=== PATIENT | female | born 2000 | race Caucasian/White ===

== ENCOUNTER 2020-12-01 18:32 | Emergency (ER) | payer OTHER ==
[~2020-12-01] VITALS: Ht 162.6 cm; Wt 59.1 kg
[2020-12-01 19:14] LABS: BASOPHILS % (AUTO) 0.3 % (0.0-2.0); EOSINOPHILS % (AUTO) 0.2 % (1.0-6.0); HEMOGLOBIN 14.3 g/dL (12.0-16.0); LYMPHOCYTES # (AUTO) 2.2 K/uL (1.0-4.8); LYMPHOCYTES % (AUTO) 19.7 % (22.0-44.0); MEAN CORPUSCULAR HEMOGLOBIN 30.7 pg (26.0-34.0); MEAN CORPUSCULAR VOLUME 90 fL (80-100); NEUTROPHILS # (AUTO) 7.9 K/uL (1.8-7.7); NEUTROPHILS % (AUTO) 70.8 % (40.0-70.0); PLATELET COUNT (AUTO) 274 K/uL (150-450); RED BLOOD CELL COUNT(AUTO) 4.66 MIL/uL (4.00-5.20); RED CELL DISTRIBUTION WIDTH 13.2 % (11.5-14.5)
[2020-12-01 19:32] LABS: AMPHET/METH SCREEN,URINE NEGATIVE (NEGATIVE); BARBITURATE SCREEN, URINE NEGATIVE (NEGATIVE); BENZODIAZEPINES SCREEN,URINE NEGATIVE (NEGATIVE); CANNABINOID SCREEN,URINE POSITIVE (NEGATIVE); COCAINE SCREEN,URINE NEGATIVE (NEGATIVE); METHADONE SCREEN, URINE NEGATIVE (NEGATIVE); OPIATE SCREEN,URINE NEGATIVE (NEGATIVE)
[2020-12-01 19:33] LABS: PHENCYCLIDINE SCREEN,URINE NEGATIVE (NEGATIVE)
[2020-12-01 19:50] LABS: ANION GAP 16 mmol/L (8-16); CALCIUM, TOTAL 9.8 mg/dL (8.8-10.5); CARBON DIOXIDE 23 mmol/L (22-29); CHLORIDE 97 mmol/L (98-107); CREATININE 0.79 mg/dL (0.60-1.30); GLOMERULAR FILTR. RATE CALC > 60 mL/min (>60); GLUCOSE,RANDOM 79 mg/dL (70-110); POTASSIUM 3.7 mmol/L (3.5-5.1); SODIUM SERUM 136 mmol/L (136-145); UREA NITROGEN, BLOOD 11 mg/dL (7-18)
[2020-12-01 19:55] LABS: ALANINE AMINOTRANSFERASE 19 U/L (12-78); ALBUMIN 4.9 g/dL (3.4-5.0); ALKALINE PHOSPHATASE 54 U/L (46-116); ASPARTATE AMINOTRANSFERASE 13 U/L (15-37); BILIRUBIN,TOTAL 0.6 mg/dL (0.1-1.0); TOTAL PROTEIN, SERUM 8.2 g/dL (6.4-8.2)
[2020-12-01 19:56] LABS: COVID AG,FIA SOURCE NASOPHARYNGEAL
[2020-12-01 20:52] VITALS: BP 129/79
== END 2020-12-01 20:52 | disposition home or self-care (01) ==
LOC: EMS 18:33
DX: F41.9 Anxiety disorder, unspecified (principal); Z20.822 Contact with and (suspected) exposure to COVID-19
CPT/HCPCS: 36415; 80053; 80307; 85025; 87426; 99283; C9803; G0480

== ENCOUNTER 2020-12-02 11:11 | Inpatient (IN) | payer MEDICAID ==
[~2020-12-02] VITALS: Ht 162.6 cm; Wt 59.4 kg
[2020-12-02 16:30] VITALS: BP 126/72
[2020-12-02] MEDS ORDERED: INFLUENZA VIRUS VACCINE QVS 2020-21 (6MO+)/PF 60 MCG/0.5 ML SYRINGE IM ONE (16:45)
[2020-12-02] MEDS: LORazepam 2 MG TABLET PO PRN (18:40)
[2020-12-03 02:26] VITALS: BP 110/73
[2020-12-03] MEDS ORDERED: MAGNESIUM HYDROXIDE SUSPENSION 30 ML UDCUP PO PRN (07:00)
[2020-12-03] MEDS ORDERED: DOCUSATE SODIUM 100 MG CAPSULE PO PRN (07:00)
[2020-12-03] MEDS ORDERED: CloNIDine HCL 0.1 MG TABLET PO PRN (07:00)
[2020-12-03] MEDS ORDERED: LOPERAMIDE HCL 2 MG CAPSULE PO PRN (07:00)
[2020-12-03] MEDS ORDERED: ACETAMINOPHEN 325 MG TABLET PO PRN (07:00)
[2020-12-03] MEDS ORDERED: GuaiFENesin/D-METHORPHAN [SUGAR-FREE] 200-20MG/10 ML SYRUP UDCUP PO PRN (07:00)
[2020-12-03] MEDS ORDERED: PETROLATUM,WHITE 28 GM JELLY TP PRN (07:00)
[2020-12-03] MEDS ORDERED: NICOTINE 14 MG/24 HOUR PATCH TD PRN (07:00)
[2020-12-03] MEDS ORDERED: ALBUTEROL SULFATE HFA 90 MCG/PUFF 8 GM INHALER IH PRN (07:00)
[2020-12-03] MEDS: LORazepam 2 MG TABLET PO PRN ×2 (07:47→13:10)
[2020-12-03] MEDS: ONDANSETRON HCL 4 MG TABLET PO PRN ×2 (07:47→19:02)
[2020-12-03 08:17] VITALS: BP 124/71
[2020-12-03] MEDS: HALOPERIDOL 5 MG TABLET PO PRN (13:10)
[2020-12-03] MEDS: MAG HYDROX/AL HYDROX/SIMETH ES 30 ML SUSPENSION UDCUP PO PRN (15:45)
[2020-12-03 16:28] VITALS: BP 117/62
[2020-12-03] MEDS: ZOLPIDEM TARTRATE 10 MG TABLET PO PRN (21:13)
[2020-12-04 00:42] VITALS: BP 128/66
[2020-12-04] MEDS: HALOPERIDOL 5 MG TABLET PO PRN ×2 (03:28→16:55)
[2020-12-04] MEDS: LORazepam 2 MG TABLET PO PRN ×3 (03:28→16:55)
[2020-12-04] MEDS: ONDANSETRON HCL 4 MG TABLET PO PRN (06:46)
[2020-12-04] MEDS: RisperiDONE 1 MG TABLET PO SCH (08:05)
[2020-12-04] MEDS: PARoxetine HCL 10 MG TABLET PO SCH (08:06)
[2020-12-04 08:14] VITALS: BP 114/71
[2020-12-04 08:28] LABS: BASOPHILS % (AUTO) 0.9 % (0.0-2.0); EOSINOPHILS % (AUTO) 0.7 % (1.0-6.0); HEMATOCRIT 38.1 % (36-46); HEMOGLOBIN 12.9 g/dL (12.0-16.0); LYMPHOCYTES % (AUTO) 30.7 % (22.0-44.0); MEAN CORPUSCULAR HEMOGLOBIN 30.6 pg (26.0-34.0); MEAN CORPUSCULAR HGB CONC 33.8 G/dL (31.0-37.0); MEAN CORPUSCULAR VOLUME 90 fL (80-100); MONOCYTES # (AUTO) 0.5 K/uL (0.1-1.0); MONOCYTES % (AUTO) 7.3 % (2.0-9.0); NEUTROPHILS % (AUTO) 60.4 % (40.0-70.0); PLATELET COUNT (AUTO) 233 K/uL (150-450); RED BLOOD CELL COUNT(AUTO) 4.22 MIL/uL (4.00-5.20); RED CELL DISTRIBUTION WIDTH 13.3 % (11.5-14.5)
[2020-12-04 08:56] LABS: HEMOGLOBIN A1C 4.9 % (3.8-5.6)
[2020-12-04 08:58] LABS: ALANINE AMINOTRANSFERASE 18 U/L (12-78); ALBUMIN 4.1 g/dL (3.4-5.0); ALKALINE PHOSPHATASE 39 U/L (46-116); ANION GAP 12 mmol/L (8-16); ASPARTATE AMINOTRANSFERASE 10 U/L (15-37); BILIRUBIN,TOTAL 0.5 mg/dL (0.1-1.0); CALCIUM, TOTAL 9.3 mg/dL (8.8-10.5); CARBON DIOXIDE 25 mmol/L (22-29); CHLORIDE 101 mmol/L (98-107); CHOL/HDL RATIO 2.3 (3.9-5.7); CHOLESTEROL 112 mg/dL (131-200); CREATININE 0.69 mg/dL (0.60-1.30); FREE T4 (FREE THYROXINE) 1.65 ng/dL (0.76-1.46); GLOMERULAR FILTR. RATE CALC > 60 mL/min (>60); GLUCOSE,RANDOM 87 mg/dL (70-110); HCG,QUANTITATIVE < 1 mIU/mL (0-6); HDL CHOLESTEROL 49 mg/dL (40-60); LDL CHOL (CALC.) 52 mg/dL (0-130); POTASSIUM 3.4 mmol/L (3.5-5.1); SODIUM SERUM 138 mmol/L (136-145); THYROID STIMULATING HORMONE 0.45 uIU/mL (0.36-3.74); TOTAL PROTEIN, SERUM 7.2 g/dL (6.4-8.2); TRIGLYCERIDES 53 mg/dL (15-150); UREA NITROGEN, BLOOD 7 mg/dL (7-18)
[2020-12-04 16:09] VITALS: BP 110/68
[2020-12-04] MEDS: MAG HYDROX/AL HYDROX/SIMETH ES 30 ML SUSPENSION UDCUP PO PRN (18:07)
[2020-12-05 00:11] VITALS: BP 116/66
[2020-12-05] MEDS: ONDANSETRON HCL 4 MG TABLET PO PRN (03:43)
[2020-12-05] MEDS: RisperiDONE 1 MG TABLET PO SCH ×2 (08:03→16:40)
[2020-12-05] MEDS: LORazepam 2 MG TABLET PO PRN ×2 (08:03→12:43)
[2020-12-05] MEDS: PARoxetine HCL 10 MG TABLET PO SCH (08:03)
[2020-12-05 08:17] VITALS: BP 134/81
[2020-12-05 09:24] LABS: AMYLASE 53 U/L (25-115); LIPASE 102 U/L (73-393)
[2020-12-05] MEDS: HALOPERIDOL 5 MG TABLET PO PRN (09:34)
[2020-12-05 16:11] VITALS: BP 125/89
[2020-12-06] MEDS: IBUPROFEN 400 MG TABLET PO PRN (05:18)
[2020-12-06] MEDS: ONDANSETRON HCL 4 MG TABLET PO PRN (06:04)
[2020-12-06] MEDS: RisperiDONE 1 MG TABLET PO SCH ×2 (08:01→16:48)
[2020-12-06] MEDS: PARoxetine HCL 20 MG TABLET PO SCH (08:01)
[2020-12-06 08:17] VITALS: BP 121/81
[2020-12-06] MEDS: LORazepam 2 MG TABLET PO PRN (14:51)
[2020-12-06 16:21] VITALS: BP 134/72
[2020-12-06] MEDS: HALOPERIDOL 5 MG TABLET PO PRN (17:21)
[2020-12-06] MEDS: ZOLPIDEM TARTRATE 10 MG TABLET PO PRN (20:50)
[2020-12-07 00:43] VITALS: BP 122/74
[2020-12-07] MEDS: RisperiDONE 1 MG TABLET PO SCH ×2 (08:07→16:02)
[2020-12-07] MEDS: LORazepam 2 MG TABLET PO PRN ×2 (08:17→17:19)
[2020-12-07] MEDS: PARoxetine HCL 20 MG TABLET PO SCH (08:17)
[2020-12-07 08:21] VITALS: BP 118/76
[2020-12-07 16:54] VITALS: BP 121/79
[2020-12-08 02:14] VITALS: BP 105/81
[2020-12-08] MEDS: IBUPROFEN 400 MG TABLET PO PRN (06:41)
[2020-12-08] MEDS: RisperiDONE 1 MG TABLET PO SCH ×2 (08:03→16:25)
[2020-12-08] MEDS: LORazepam 2 MG TABLET PO PRN ×2 (08:03→12:46)
[2020-12-08] MEDS: PARoxetine HCL 20 MG TABLET PO SCH (08:03)
[2020-12-08 08:37] VITALS: BP 118/79
[2020-12-08 16:12] VITALS: BP 137/76
[2020-12-09] MEDS: ZOLPIDEM TARTRATE 10 MG TABLET PO PRN (00:28)
[2020-12-09 02:05] VITALS: BP 122/74
[2020-12-09] MEDS: IBUPROFEN 400 MG TABLET PO PRN (04:50)
[2020-12-09] MEDS: RisperiDONE 1 MG TABLET PO SCH ×2 (08:08→15:59)
[2020-12-09] MEDS: PARoxetine HCL 20 MG TABLET PO SCH (08:08)
[2020-12-09 08:21] VITALS: BP 116/68
[2020-12-09] MEDS: LORazepam 2 MG TABLET PO PRN ×2 (10:44→15:59)
[2020-12-09 16:26] VITALS: BP 129/79
[2020-12-10 00:25] VITALS: BP 123/74
[2020-12-10] MEDS: ZOLPIDEM TARTRATE 10 MG TABLET PO PRN ×2 (00:36→21:38)
[2020-12-10 08:05] VITALS: BP 125/71
[2020-12-10] MEDS: PARoxetine HCL 20 MG TABLET PO SCH (08:58)
[2020-12-10] MEDS: RisperiDONE 1 MG TABLET PO SCH ×2 (08:58→16:42)
[2020-12-10] MEDS: LORazepam 2 MG TABLET PO PRN ×2 (09:04→13:07)
[2020-12-10] MEDS: IBUPROFEN 400 MG TABLET PO PRN (15:52)
[2020-12-10 16:30] VITALS: BP 139/78
[2020-12-11 00:11] VITALS: BP 126/73
[2020-12-11] MEDS: MAG HYDROX/AL HYDROX/SIMETH ES 30 ML SUSPENSION UDCUP PO PRN (00:45)
[2020-12-11 08:13] VITALS: BP 130/72
[2020-12-11] MEDS: LORazepam 2 MG TABLET PO PRN ×2 (08:26→23:05)
[2020-12-11] MEDS: RisperiDONE 1 MG TABLET PO SCH ×2 (08:26→16:49)
[2020-12-11] MEDS: PARoxetine HCL 20 MG TABLET PO SCH (08:26)
[2020-12-11 08:31] LABS: COVID AG,FIA SOURCE NASOPHARYNGEAL
[2020-12-11 09:18] LABS: APPEARANCE,URINE CLEAR (CLEAR); BILIRUBIN,URINE NEGATIVE (NEGATIVE); GLUCOSE, URINE (UA) NEGATIVE (NEGATIVE); KETONES,URINE NEGATIVE (NEGATIVE); LEUKOCYTE ESTERASE ,URINE NEGATIVE (NEGATIVE); NITRATE,URINE NEGATIVE (NEGATIVE); OCCULT BLOOD,URINE NEGATIVE (NEGATIVE); PROTEIN,URINE NEGATIVE (NEGATIVE); UROBILINOGEN,URINE 0.2 mg/dL (<=1.0)
[2020-12-11 09:22] LABS: AMPHET/METH SCREEN,URINE NEGATIVE (NEGATIVE); BARBITURATE SCREEN, URINE NEGATIVE (NEGATIVE); BENZODIAZEPINES SCREEN,URINE NEGATIVE (NEGATIVE); CANNABINOID SCREEN,URINE POSITIVE (NEGATIVE); COCAINE SCREEN,URINE NEGATIVE (NEGATIVE); METHADONE SCREEN, URINE NEGATIVE (NEGATIVE); OPIATE SCREEN,URINE NEGATIVE (NEGATIVE)
[2020-12-11 09:31] LABS: PHENCYCLIDINE SCREEN,URINE NEGATIVE (NEGATIVE)
[2020-12-11 16:05] VITALS: BP 124/76
[2020-12-11] MEDS: HALOPERIDOL 5 MG TABLET PO PRN (23:05)
[2020-12-12 01:18] VITALS: BP 102/69
[2020-12-12] MEDS: ZOLPIDEM TARTRATE 10 MG TABLET PO PRN (01:22)
[2020-12-12 08:07] VITALS: BP 118/76
[2020-12-12] MEDS: PARoxetine HCL 20 MG TABLET PO SCH (08:25)
[2020-12-12] MEDS: RisperiDONE 1 MG TABLET PO SCH (08:25)
[2020-12-12] MEDS ORDERED: RISP1TAB89 PO (09:54)
[2020-12-12] MEDS ORDERED: PARO-38 PO (09:54)
== END 2020-12-12 10:34 | disposition home or self-care (01) | DRG 750 ==
LOC: B3A 16:24
PROVIDERS: ADMIT Psychiatry & Neurology Child & Adolescent Psychiatry; ATTEND Psychiatry & Neurology Child & Adolescent Psychiatry
DX: F20.0 Paranoid schizophrenia (principal); Z59.0 Homelessness; F12.90 Cannabis use, unspecified, uncomplicated; F41.9 Anxiety disorder, unspecified; F10.10 Alcohol abuse, uncomplicated; Y90.9 Presence of alcohol in blood, level not specified; F19.10 Other psychoactive substance abuse, uncomplicated; F15.10 Other stimulant abuse, uncomplicated; E87.6 Hypokalemia; E05.90 Thyrotoxicosis, unspecified without thyrotoxic crisis or storm; N39.0 Urinary tract infection, site not specified; R73.9 Hyperglycemia, unspecified; Z91.19 Patient's noncompliance with other medical treatment and regimen; Z20.822 Contact with and (suspected) exposure to COVID-19; Z28.21 Immunization not carried out because of patient refusal
CPT/HCPCS: 80307; 83036; 84436; 84439; 84443; 87081; 87426; 90686; Q0162

== ENCOUNTER 2020-12-19 19:41 | Inpatient (IN) | payer MEDICAID, OTHER ==
[~2020-12-19] VITALS: Ht 170.2 cm; Wt 59.9 kg
[~2020-12-19 19:41] MED LIST: PARO-38 PO; RISP1TAB89 PO
[2020-12-19] MEDS ORDERED: METH-372 PO (20:09)
[2020-12-19] MEDS ORDERED: LORazepam 2 MG TABLET PO ONE (21:15)
[2020-12-19 21:16] LABS: HEMATOCRIT 36.4 % (36-46); HEMOGLOBIN 12.8 g/dL (12.0-16.0); MEAN CORPUSCULAR HEMOGLOBIN 31.1 pg (26.0-34.0); MEAN CORPUSCULAR HGB CONC 35.1 G/dL (31.0-37.0); MEAN CORPUSCULAR VOLUME 88 fL (80-100); PLATELET COUNT (AUTO) 281 K/uL (150-450); RED BLOOD CELL COUNT(AUTO) 4.12 MIL/uL (4.00-5.20); RED CELL DISTRIBUTION WIDTH 13.3 % (11.5-14.5)
[2020-12-19 21:35] LABS: ANION GAP 11 mmol/L (8-16); CALCIUM, TOTAL 9.7 mg/dL (8.8-10.5); CARBON DIOXIDE 26 mmol/L (22-29); CHLORIDE 103 mmol/L (98-107); GLOMERULAR FILTR. RATE CALC > 60 mL/min (>60); GLUCOSE,RANDOM 113 mg/dL (70-110); POTASSIUM 3.6 mmol/L (3.5-5.1); SODIUM SERUM 140 mmol/L (136-145); UREA NITROGEN, BLOOD 6 mg/dL (7-18)
[2020-12-19 21:42] LABS: ALANINE AMINOTRANSFERASE 13 U/L (12-78); ALBUMIN 4.7 g/dL (3.4-5.0); ALKALINE PHOSPHATASE 47 U/L (46-116); ASPARTATE AMINOTRANSFERASE 13 U/L (15-37); BILIRUBIN,TOTAL 0.5 mg/dL (0.1-1.0); TOTAL PROTEIN, SERUM 7.9 g/dL (6.4-8.2)
[2020-12-19 21:51] LABS: BAND NEUTROPHILS % (MANUAL) 11 % (0-5); LYMPHOCYTES % (MANUAL) 14 % (22-44); MONOCYTES % (MANUAL) 6 % (2-9); SEGMENTED NEUTROPHILS % 69 % (40-70)
[2020-12-19 21:52] LABS: ACETAMINOPHEN < 2 mcg/mL (10-30)
[2020-12-19 21:53] LABS: SALICYLATE 1.6 mg/dL (2.8-20.0)
[2020-12-19 22:30] LABS: COVID AG,FIA SOURCE NASOPHARYNGEAL
[2020-12-19 22:34] LABS: APPEARANCE,URINE CLOUDY (CLEAR); BILIRUBIN,URINE NEGATIVE (NEGATIVE); GLUCOSE, URINE (UA) NEGATIVE (NEGATIVE); KETONES,URINE TRACE mg/dL (NEGATIVE); LEUKOCYTE ESTERASE ,URINE NEGATIVE (NEGATIVE); NITRATE,URINE NEGATIVE (NEGATIVE); OCCULT BLOOD,URINE NEGATIVE (NEGATIVE); PROTEIN,URINE NEGATIVE (NEGATIVE); UROBILINOGEN,URINE 0.2 mg/dL (<=1.0)
[2020-12-19 23:04] LABS: AMPHET/METH SCREEN,URINE NEGATIVE (NEGATIVE); BARBITURATE SCREEN, URINE NEGATIVE (NEGATIVE); BENZODIAZEPINES SCREEN,URINE NEGATIVE (NEGATIVE); CANNABINOID SCREEN,URINE POSITIVE (NEGATIVE); COCAINE SCREEN,URINE NEGATIVE (NEGATIVE); METHADONE SCREEN, URINE NEGATIVE (NEGATIVE); OPIATE SCREEN,URINE NEGATIVE (NEGATIVE)
[2020-12-19 23:15] LABS: PHENCYCLIDINE SCREEN,URINE NEGATIVE (NEGATIVE)
[2020-12-20 03:13] VITALS: BP 138/81
[2020-12-20] MEDS ORDERED: MAG HYDROX/AL HYDROX/SIMETH ES 30 ML SUSPENSION UDCUP PO PRN (07:45)
[2020-12-20] MEDS ORDERED: ONDANSETRON HCL 4 MG TABLET PO PRN (07:45)
[2020-12-20] MEDS ORDERED: PETROLATUM,WHITE 28 GM JELLY TP PRN (07:45)
[2020-12-20] MEDS ORDERED: MAGNESIUM HYDROXIDE SUSPENSION 30 ML UDCUP PO PRN (07:45)
[2020-12-20] MEDS ORDERED: CloNIDine HCL 0.1 MG TABLET PO PRN (07:45)
[2020-12-20] MEDS ORDERED: DOCUSATE SODIUM 100 MG CAPSULE PO PRN (07:45)
[2020-12-20] MEDS ORDERED: LOPERAMIDE HCL 2 MG CAPSULE PO PRN (07:45)
[2020-12-20] MEDS ORDERED: ACETAMINOPHEN 325 MG TABLET PO PRN (07:45)
[2020-12-20] MEDS ORDERED: GuaiFENesin/D-METHORPHAN [SUGAR-FREE] 200-20MG/10 ML SYRUP UDCUP PO PRN (07:45)
[2020-12-20] MEDS ORDERED: NICOTINE 14 MG/24 HOUR PATCH TD PRN (07:45)
[2020-12-20] MEDS ORDERED: ALBUTEROL SULFATE HFA 90 MCG/PUFF 8 GM INHALER IH PRN (07:45)
[2020-12-20] MEDS: LORazepam 2 MG TABLET PO PRN (08:08)
[2020-12-20 08:14] VITALS: BP 112/69
[2020-12-20] MEDS: HALOPERIDOL 5 MG TABLET PO PRN (09:06)
[2020-12-20 09:26] LABS: FREE T4 (FREE THYROXINE) 1.26 ng/dL (0.76-1.46); THYROID STIMULATING HORMONE 0.45 uIU/mL (0.36-3.74)
[2020-12-20] MEDS: IBUPROFEN 400 MG TABLET PO PRN (10:22)
[2020-12-20 11:22] VITALS: BP 116/78
[2020-12-20 16:15] VITALS: BP 135/60
[2020-12-21 00:30] VITALS: BP 121/62
[2020-12-21] MEDS: LORazepam 2 MG TABLET PO PRN ×3 (03:23→18:25)
[2020-12-21 08:33] VITALS: BP 134/87
[2020-12-21] MEDS: RisperiDONE 2 MG TABLET PO SCH (16:02)
[2020-12-21 16:26] VITALS: BP 128/80
[2020-12-21] MEDS: IBUPROFEN 400 MG TABLET PO PRN (17:33)
[2020-12-21] MEDS: ZOLPIDEM TARTRATE 10 MG TABLET PO PRN (20:47)
[2020-12-22] MEDS: LORazepam 2 MG TABLET PO PRN ×3 (00:09→08:33)
[2020-12-22] MEDS: HALOPERIDOL 5 MG TABLET PO PRN (00:10)
[2020-12-22] MEDS: IBUPROFEN 400 MG TABLET PO PRN (00:11)
[2020-12-22 00:23] VITALS: BP 120/78
[2020-12-22] MEDS: RisperiDONE 2 MG TABLET PO SCH ×2 (08:33→16:41)
[2020-12-22] MEDS: PARoxetine HCL 20 MG TABLET PO SCH (08:33)
[2020-12-22 08:42] VITALS: BP 162/96
[2020-12-22 12:00] VITALS: BP 145/79
[2020-12-22 14:28] VITALS: BP 129/69
[2020-12-22 17:59] VITALS: BP 117/64
[2020-12-23 01:19] VITALS: BP 110/67
[2020-12-23] MEDS: IBUPROFEN 400 MG TABLET PO PRN ×2 (05:22→20:35)
[2020-12-23] MEDS: RisperiDONE 2 MG TABLET PO SCH ×2 (08:00→17:47)
[2020-12-23] MEDS: PARoxetine HCL 20 MG TABLET PO SCH (08:00)
[2020-12-23 08:30] VITALS: BP 135/87
[2020-12-23] MEDS: LORazepam 2 MG TABLET PO PRN ×2 (09:15→13:27)
[2020-12-23 09:48] LABS: BASOPHILS % (AUTO) 1.2 % (0.0-2.0); EOSINOPHILS % (AUTO) 1.1 % (1.0-6.0); HEMATOCRIT 38.9 % (36-46); HEMOGLOBIN 12.8 g/dL (12.0-16.0); LYMPHOCYTES # (AUTO) 1.5 K/uL (1.0-4.8); LYMPHOCYTES % (AUTO) 24.9 % (22.0-44.0); MEAN CORPUSCULAR HEMOGLOBIN 30.8 pg (26.0-34.0); MEAN CORPUSCULAR HGB CONC 32.8 G/dL (31.0-37.0); MEAN CORPUSCULAR VOLUME 94 fL (80-100); MONOCYTES # (AUTO) 0.3 K/uL (0.1-1.0); MONOCYTES % (AUTO) 5.9 % (2.0-9.0); NEUTROPHILS # (AUTO) 3.9 K/uL (1.8-7.7); NEUTROPHILS % (AUTO) 66.9 % (40.0-70.0); PLATELET COUNT (AUTO) 271 K/uL (150-450); RED BLOOD CELL COUNT(AUTO) 4.16 MIL/uL (4.00-5.20); RED CELL DISTRIBUTION WIDTH 13.8 % (11.5-14.5)
[2020-12-23] MEDS: HALOPERIDOL 5 MG TABLET PO PRN (13:27)
[2020-12-23 16:29] VITALS: BP 131/75
[2020-12-24] MEDS: ZOLPIDEM TARTRATE 10 MG TABLET PO PRN ×2 (02:20→22:49)
[2020-12-24 02:42] VITALS: BP 122/87
[2020-12-24] MEDS: PARoxetine HCL 20 MG TABLET PO SCH (08:11)
[2020-12-24] MEDS: RisperiDONE 2 MG TABLET PO SCH ×2 (08:11→16:42)
[2020-12-24] MEDS: IBUPROFEN 400 MG TABLET PO PRN ×2 (08:12→22:50)
[2020-12-24 08:27] VITALS: BP 136/84
[2020-12-24] MEDS: LORazepam 2 MG TABLET PO PRN ×2 (10:47→23:45)
[2020-12-24 16:20] VITALS: BP 136/76
[2020-12-24 20:22] VITALS: BP 136/76
[2020-12-25 02:33] VITALS: BP 126/82
[2020-12-25] MEDS: LORazepam 2 MG TABLET PO PRN ×2 (03:59→08:21)
[2020-12-25] MEDS: PARoxetine HCL 20 MG TABLET PO SCH (08:21)
[2020-12-25] MEDS: RisperiDONE 2 MG TABLET PO SCH ×2 (08:21→17:01)
[2020-12-25 08:24] VITALS: BP 111/58
[2020-12-25] MEDS: HALOPERIDOL 5 MG TABLET PO PRN (10:24)
[2020-12-25 16:10] VITALS: BP 133/80
[2020-12-26 01:35] VITALS: BP 112/74
[2020-12-26 02:43] VITALS: BP 152/98
[2020-12-26] MEDS: LORazepam 2 MG TABLET PO PRN ×2 (02:43→20:34)
[2020-12-26] MEDS: ZOLPIDEM TARTRATE 10 MG TABLET PO PRN (02:43)
[2020-12-26 08:15] VITALS: BP 122/60
[2020-12-26] MEDS: MULTIVITAMINS WITH MINERALS, THERAPEUTIC TABLET PO SCH (08:38)
[2020-12-26] MEDS: RisperiDONE 2 MG TABLET PO SCH ×2 (08:38→16:35)
[2020-12-26] MEDS: PARoxetine HCL 20 MG TABLET PO SCH (08:38)
[2020-12-26 16:36] VITALS: BP 128/78
[2020-12-26] MEDS: HALOPERIDOL 5 MG TABLET PO PRN (17:24)
[2020-12-26] MEDS: IBUPROFEN 400 MG TABLET PO PRN (20:34)
[2020-12-26] MEDS: OLANZapine 10 MG RAPDIS TABLET PO SCH (20:34)
[2020-12-27 03:51] VITALS: BP 122/74
[2020-12-27] MEDS: IBUPROFEN 400 MG TABLET PO PRN (05:15)
[2020-12-27] MEDS: PARoxetine HCL 20 MG TABLET PO SCH (08:18)
[2020-12-27] MEDS: MULTIVITAMINS WITH MINERALS, THERAPEUTIC TABLET PO SCH (08:18)
[2020-12-27 08:26] VITALS: BP 128/70
[2020-12-27] MEDS: LORazepam 2 MG TABLET PO PRN ×2 (09:09→14:40)
[2020-12-27 16:15] VITALS: BP 118/82
[2020-12-27] MEDS: OLANZapine 10 MG RAPDIS TABLET PO SCH (20:40)
[2020-12-27] MEDS: ZOLPIDEM TARTRATE 10 MG TABLET PO PRN (21:16)
[2020-12-28 01:11] VITALS: BP 102/71
[2020-12-28] MEDS: LORazepam 2 MG TABLET PO PRN ×3 (06:17→15:35)
[2020-12-28] MEDS: MULTIVITAMINS WITH MINERALS, THERAPEUTIC TABLET PO SCH (08:32)
[2020-12-28] MEDS: PARoxetine HCL 20 MG TABLET PO SCH (08:33)
[2020-12-28 10:23] VITALS: BP 131/67
[2020-12-28 16:27] VITALS: BP 132/86
[2020-12-28] MEDS: IBUPROFEN 400 MG TABLET PO PRN (17:07)
[2020-12-28] MEDS: OLANZapine 10 MG RAPDIS TABLET PO SCH (20:16)
[2020-12-28] MEDS: ZOLPIDEM TARTRATE 10 MG TABLET PO PRN (20:17)
[2020-12-29 00:57] VITALS: BP 102/76
[2020-12-29] MEDS: IBUPROFEN 400 MG TABLET PO PRN (02:38)
[2020-12-29] MEDS: LORazepam 2 MG TABLET PO PRN ×3 (02:38→14:39)
[2020-12-29 08:14] VITALS: BP 136/92
[2020-12-29] MEDS: PARoxetine HCL 20 MG TABLET PO SCH (08:51)
[2020-12-29] MEDS: MULTIVITAMINS WITH MINERALS, THERAPEUTIC TABLET PO SCH (08:51)
[2020-12-29] MEDS: HALOPERIDOL 5 MG TABLET PO PRN (12:03)
[2020-12-29 16:11] VITALS: BP 122/68
[2020-12-29] MEDS: OLANZapine 10 MG RAPDIS TABLET PO SCH (20:03)
[2020-12-29] MEDS: ZOLPIDEM TARTRATE 10 MG TABLET PO PRN (20:28)
[2020-12-30] MEDS: HALOPERIDOL 5 MG TABLET PO PRN (01:36)
[2020-12-30 04:31] VITALS: BP 127/76
[2020-12-30 08:18] VITALS: BP 147/77
[2020-12-30] MEDS: MULTIVITAMINS WITH MINERALS, THERAPEUTIC TABLET PO SCH (08:22)
[2020-12-30] MEDS: PARoxetine HCL 20 MG TABLET PO SCH (08:22)
[2020-12-30] MEDS ORDERED: OLAN10TA3 PO (10:32)
== END 2020-12-30 12:25 | disposition home or self-care (01) | DRG 750 ==
LOC: EMS 19:41 → B3A 21:41
PROVIDERS: ADMIT Psychiatry & Neurology Child & Adolescent Psychiatry; ATTEND Psychiatry & Neurology Child & Adolescent Psychiatry
DX: F20.9 Schizophrenia, unspecified (principal); F41.9 Anxiety disorder, unspecified; M17.0 Bilateral primary osteoarthritis of knee; R45.851 Suicidal ideations; D72.829 Elevated white blood cell count, unspecified; F12.90 Cannabis use, unspecified, uncomplicated; Z20.822 Contact with and (suspected) exposure to COVID-19; Z91.14 Patient's other noncompliance with medication regimen
CPT/HCPCS: 84439; 84443; 87081; 87426; 99285; G0480; G0481; Q0162

== ENCOUNTER 2021-01-05 18:29 | Inpatient (IN) | payer MEDICAID, OTHER ==
[~2021-01-05] VITALS: Ht 162.6 cm; Wt 60.4 kg
[~2021-01-05 18:29] MED LIST changes: +OLAN10TA3 PO; -RISP1TAB89 PO
[2021-01-05] MEDS ORDERED: HALOPERIDOL LACTATE 5 MG/ML VIAL IM ONE (19:30)
[2021-01-05] MEDS ORDERED: LORazepam 2 MG/ML VIAL IM ONE (19:30)
[2021-01-05 20:32] LABS: BASOPHILS % (AUTO) 0.8 % (0.0-2.0); EOSINOPHILS % (AUTO) 1.7 % (1.0-6.0); HEMATOCRIT 38.5 % (36-46); HEMOGLOBIN 12.8 g/dL (12.0-16.0); LYMPHOCYTES # (AUTO) 2.5 K/uL (1.0-4.8); LYMPHOCYTES % (AUTO) 28.3 % (22.0-44.0); MEAN CORPUSCULAR HEMOGLOBIN 30.1 pg (26.0-34.0); MEAN CORPUSCULAR HGB CONC 33.3 G/dL (31.0-37.0); MEAN CORPUSCULAR VOLUME 90 fL (80-100); MONOCYTES # (AUTO) 0.7 K/uL (0.1-1.0); MONOCYTES % (AUTO) 8.2 % (2.0-9.0); NEUTROPHILS # (AUTO) 5.4 K/uL (1.8-7.7); PLATELET COUNT (AUTO) 304 K/uL (150-450); RED BLOOD CELL COUNT(AUTO) 4.26 MIL/uL (4.00-5.20); RED CELL DISTRIBUTION WIDTH 13.7 % (11.5-14.5)
[2021-01-05 20:46] LABS: ANION GAP 13 mmol/L (8-16); CALCIUM, TOTAL 8.5 mg/dL (8.8-10.5); CARBON DIOXIDE 24 mmol/L (22-29); CHLORIDE 103 mmol/L (98-107); CREATININE 0.78 mg/dL (0.60-1.30); GLOMERULAR FILTR. RATE CALC > 60 mL/min (>60); GLUCOSE,RANDOM 130 mg/dL (70-110); POTASSIUM 3.2 mmol/L (3.5-5.1); SODIUM SERUM 140 mmol/L (136-145); UREA NITROGEN, BLOOD 4 mg/dL (7-18)
[2021-01-05 20:58] LABS: ALANINE AMINOTRANSFERASE 18 U/L (12-78); ALBUMIN 3.8 g/dL (3.4-5.0); ALKALINE PHOSPHATASE 48 U/L (46-116); ASPARTATE AMINOTRANSFERASE 14 U/L (15-37); BILIRUBIN,TOTAL 0.2 mg/dL (0.1-1.0); TOTAL PROTEIN, SERUM 6.9 g/dL (6.4-8.2)
[2021-01-05] MEDS ORDERED: LORazepam 2 MG TABLET PO PRN (22:45)
[2021-01-05] MEDS ORDERED: POTASSIUM CHLORIDE 20 MEQ ER TABLET PO ONE (22:45)
[2021-01-06 01:00] VITALS: BP 140/80
[2021-01-06] MEDS ORDERED: INFLUENZA VIRUS VACCINE QVS 2020-21 (6MO+)/PF 60 MCG/0.5 ML SYRINGE IM ONE (01:00)
[2021-01-06] MEDS ORDERED: DOCUSATE SODIUM 100 MG CAPSULE PO PRN (08:00)
[2021-01-06] MEDS ORDERED: MAG HYDROX/AL HYDROX/SIMETH ES 30 ML SUSPENSION UDCUP PO PRN (08:00)
[2021-01-06] MEDS ORDERED: ACETAMINOPHEN 325 MG TABLET PO PRN (08:00)
[2021-01-06] MEDS ORDERED: ONDANSETRON HCL 4 MG TABLET PO PRN (08:00)
[2021-01-06] MEDS ORDERED: LOPERAMIDE HCL 2 MG CAPSULE PO PRN (08:00)
[2021-01-06] MEDS ORDERED: ALBUTEROL SULFATE HFA 90 MCG/PUFF 8 GM INHALER IH PRN (08:00)
[2021-01-06] MEDS ORDERED: CloNIDine HCL 0.1 MG TABLET PO PRN (08:00)
[2021-01-06] MEDS ORDERED: GuaiFENesin/D-METHORPHAN [SUGAR-FREE] 200-20MG/10 ML SYRUP UDCUP PO PRN (08:00)
[2021-01-06] MEDS ORDERED: MAGNESIUM HYDROXIDE SUSPENSION 30 ML UDCUP PO PRN (08:00)
[2021-01-06] MEDS ORDERED: POTASSIUM CHLORIDE 20 MEQ ER TABLET PO ONE (08:00)
[2021-01-06] MEDS ORDERED: NICOTINE 14 MG/24 HOUR PATCH TD PRN (08:00)
[2021-01-06] MEDS ORDERED: PETROLATUM,WHITE 28 GM JELLY TP PRN (08:00)
[2021-01-06 08:32] LABS: COVID AG,FIA SOURCE NASOPHARYNGEAL
[2021-01-06 09:58] VITALS: BP 129/80
[2021-01-06] MEDS: HydrOXYzine PAMOATE 50 MG CAPSULE PO PRN (10:32)
[2021-01-06 12:34] LABS: HCG,QUANTITATIVE < 1 mIU/mL (0-6)
[2021-01-06] MEDS ORDERED: PARoxetine HCL 10 MG TABLET PO SCH (13:15)
[2021-01-06] MEDS: HALOPERIDOL 5 MG TABLET PO PRN (13:55)
[2021-01-06 16:15] VITALS: BP 132/74
[2021-01-06] MEDS: ZOLPIDEM TARTRATE 10 MG TABLET PO PRN (20:35)
[2021-01-06] MEDS: OLANZapine 10 MG TABLET PO SCH (20:35)
[2021-01-07 01:41] VITALS: BP 119/72
[2021-01-07] MEDS: HALOPERIDOL 5 MG TABLET PO PRN ×3 (03:15→15:59)
[2021-01-07] MEDS: HydrOXYzine PAMOATE 50 MG CAPSULE PO PRN ×3 (03:16→17:07)
[2021-01-07 08:18] VITALS: BP 145/71
[2021-01-07 08:22] LABS: CHOL/HDL RATIO 2.2 (3.9-5.7); CHOLESTEROL 108 mg/dL (131-200); HCG,QUANTITATIVE < 1 mIU/mL (0-6); HDL CHOLESTEROL 49 mg/dL (40-60); LDL CHOL (CALC.) 48 mg/dL (0-130); TRIGLYCERIDES 56 mg/dL (15-150)
[2021-01-07] MEDS: PARoxetine HCL 20 MG TABLET PO SCH (09:02)
[2021-01-07] MEDS: IBUPROFEN 400 MG TABLET PO PRN (13:40)
[2021-01-07 16:12] VITALS: BP 142/89
[2021-01-07] MEDS ORDERED: LORazepam 2 MG/ML VIAL IM ONE (19:30)
[2021-01-07] MEDS ORDERED: HALOPERIDOL LACTATE 5 MG/ML VIAL IM ONE (19:30)
[2021-01-07] MEDS ORDERED: DiphenhydrAMINE HCL 50 MG/ML VIAL IM ONE (19:30)
[2021-01-07] MEDS: OLANZapine 10 MG TABLET PO SCH (19:59)
[2021-01-08 01:25] VITALS: BP 132/84
[2021-01-08 08:15] VITALS: BP 126/82
[2021-01-08] MEDS: PARoxetine HCL 20 MG TABLET PO SCH (08:15)
[2021-01-08] MEDS: HydrOXYzine PAMOATE 50 MG CAPSULE PO PRN (08:15)
[2021-01-08] MEDS: HALOPERIDOL 5 MG TABLET PO PRN ×2 (08:15→16:13)
[2021-01-08 16:22] VITALS: BP 141/94
[2021-01-08] MEDS: OLANZapine 10 MG TABLET PO SCH (20:33)
[2021-01-09 00:40] VITALS: BP 130/78
[2021-01-09] MEDS: IBUPROFEN 400 MG TABLET PO PRN (01:04)
[2021-01-09] MEDS: ZOLPIDEM TARTRATE 10 MG TABLET PO PRN (01:04)
[2021-01-09] MEDS: HALOPERIDOL 5 MG TABLET PO PRN ×2 (08:02→16:35)
[2021-01-09] MEDS: PARoxetine HCL 20 MG TABLET PO SCH (08:02)
[2021-01-09 08:10] VITALS: BP 147/84
[2021-01-09] MEDS ORDERED: ARIPiprazole 10 MG TABLET PO ONE (12:30)
[2021-01-09 16:03] VITALS: BP 140/80
[2021-01-09] MEDS ORDERED: DiphenhydrAMINE HCL 50 MG/ML VIAL ONE (19:29)
[2021-01-09] MEDS ORDERED: DiphenhydrAMINE HCL 50 MG/ML VIAL IM ONE (19:30)
[2021-01-09] MEDS: OLANZapine 10 MG TABLET PO SCH (20:14)
[2021-01-10 00:12] VITALS: BP 134/78
[2021-01-10] MEDS: PARoxetine HCL 20 MG TABLET PO SCH (08:07)
[2021-01-10 08:17] VITALS: BP 130/67
[2021-01-10] MEDS ORDERED: ARIPiprazole LAUROXIL,SUBMICR. ER SUSPENSION 675 MG/2.4 ML SYRINGE IM ONE (09:00)
[2021-01-10] MEDS ORDERED: ARIPiprazole LAUROXIL ER SUSPENSION 882 MG/3.2 ML SYRINGE IM ONE (09:00)
[2021-01-10 16:17] VITALS: BP 122/69
[2021-01-10] MEDS: OLANZapine 10 MG TABLET PO SCH (20:14)
[2021-01-11 01:43] VITALS: BP 114/76
[2021-01-11] MEDS: THIAMINE 100 MG TABLET PO SCH (08:01)
[2021-01-11] MEDS: FOLIC ACID 1 MG TABLET PO SCH (08:01)
[2021-01-11] MEDS: PARoxetine HCL 20 MG TABLET PO SCH (08:01)
[2021-01-11 08:06] VITALS: BP 116/73
[2021-01-11 16:03] VITALS: BP 136/75
[2021-01-11] MEDS: OLANZapine 10 MG TABLET PO SCH (19:58)
[2021-01-12 04:55] VITALS: BP 122/74
[2021-01-12 08:04] VITALS: BP 156/97
[2021-01-12] MEDS: FOLIC ACID 1 MG TABLET PO SCH (08:28)
[2021-01-12] MEDS: THIAMINE 100 MG TABLET PO SCH (08:29)
[2021-01-12] MEDS: PARoxetine HCL 20 MG TABLET PO SCH (08:29)
[2021-01-12 16:22] VITALS: BP 122/77
[2021-01-12] MEDS: OLANZapine 10 MG TABLET PO SCH (20:50)
[2021-01-12] MEDS: ZOLPIDEM TARTRATE 10 MG TABLET PO PRN (21:25)
[2021-01-12] MEDS: HydrOXYzine PAMOATE 50 MG CAPSULE PO PRN (21:25)
[2021-01-13 00:03] VITALS: BP 134/90
[2021-01-13] MEDS: HydrOXYzine PAMOATE 50 MG CAPSULE PO PRN ×3 (03:48→18:34)
[2021-01-13] MEDS: PARoxetine HCL 20 MG TABLET PO SCH (07:58)
[2021-01-13] MEDS: FOLIC ACID 1 MG TABLET PO SCH (07:58)
[2021-01-13] MEDS: THIAMINE 100 MG TABLET PO SCH (08:00)
[2021-01-13 08:03] VITALS: BP 128/81
[2021-01-13 16:05] VITALS: BP 140/81
[2021-01-13] MEDS: OLANZapine 10 MG TABLET PO SCH (20:17)
[2021-01-14] MEDS: ZOLPIDEM TARTRATE 10 MG TABLET PO PRN ×2 (02:06→20:39)
[2021-01-14] MEDS: HydrOXYzine PAMOATE 50 MG CAPSULE PO PRN ×3 (02:06→14:47)
[2021-01-14 06:41] VITALS: BP 122/74
[2021-01-14] MEDS: FOLIC ACID 1 MG TABLET PO SCH (08:09)
[2021-01-14] MEDS: PARoxetine HCL 20 MG TABLET PO SCH (08:09)
[2021-01-14] MEDS: THIAMINE 100 MG TABLET PO SCH (08:09)
[2021-01-14 08:16] VITALS: BP 145/79
[2021-01-14 16:23] VITALS: BP 150/72
[2021-01-14 17:05] VITALS: BP 133/72
[2021-01-14] MEDS: IBUPROFEN 400 MG TABLET PO PRN (17:58)
[2021-01-14] MEDS: OLANZapine 10 MG TABLET PO SCH (20:39)
[2021-01-15 01:30] VITALS: BP 126/88
[2021-01-15] MEDS: HydrOXYzine PAMOATE 50 MG CAPSULE PO PRN ×3 (01:35→15:32)
[2021-01-15] MEDS: THIAMINE 100 MG TABLET PO SCH (08:03)
[2021-01-15] MEDS: PARoxetine HCL 20 MG TABLET PO SCH (08:03)
[2021-01-15] MEDS: FOLIC ACID 1 MG TABLET PO SCH (08:03)
[2021-01-15 08:09] VITALS: BP 146/81
[2021-01-15] MEDS: IBUPROFEN 400 MG TABLET PO PRN ×2 (10:22→19:04)
[2021-01-15 16:07] VITALS: BP 134/85
[2021-01-15] MEDS: OLANZapine 10 MG TABLET PO SCH (21:03)
[2021-01-15] MEDS: ZOLPIDEM TARTRATE 10 MG TABLET PO PRN (21:03)
[2021-01-16 00:12] VITALS: BP 126/80
[2021-01-16] MEDS: HydrOXYzine PAMOATE 50 MG CAPSULE PO PRN ×2 (06:05→14:00)
[2021-01-16] MEDS: PARoxetine HCL 20 MG TABLET PO SCH (08:00)
[2021-01-16] MEDS: FOLIC ACID 1 MG TABLET PO SCH (08:00)
[2021-01-16] MEDS: THIAMINE 100 MG TABLET PO SCH (08:00)
[2021-01-16 08:08] VITALS: BP 127/91
[2021-01-16 16:25] VITALS: BP 112/62
[2021-01-16] MEDS: OLANZapine 10 MG TABLET PO SCH (20:05)
[2021-01-16 20:21] VITALS: BP 112/62
[2021-01-16] MEDS: IBUPROFEN 400 MG TABLET PO PRN (20:27)
[2021-01-16] MEDS: ZOLPIDEM TARTRATE 10 MG TABLET PO PRN (21:48)
[2021-01-17 02:01] VITALS: BP 102/69
[2021-01-17 08:17] VITALS: BP 156/78
[2021-01-17] MEDS: PARoxetine HCL 20 MG TABLET PO SCH (08:23)
[2021-01-17] MEDS: FOLIC ACID 1 MG TABLET PO SCH (08:23)
[2021-01-17] MEDS: THIAMINE 100 MG TABLET PO SCH (08:23)
[2021-01-17] MEDS: HydrOXYzine PAMOATE 50 MG CAPSULE PO PRN ×2 (13:04→19:41)
[2021-01-17 16:16] VITALS: BP 129/74
[2021-01-17] MEDS: OLANZapine 10 MG TABLET PO SCH (20:18)
[2021-01-17 21:16] VITALS: BP 130/76
[2021-01-17] MEDS: IBUPROFEN 400 MG TABLET PO PRN (21:16)
[2021-01-17] MEDS: ZOLPIDEM TARTRATE 10 MG TABLET PO PRN (21:37)
[2021-01-18 00:18] VITALS: BP 122/78
[2021-01-18] MEDS: HydrOXYzine PAMOATE 50 MG CAPSULE PO PRN ×3 (05:57→19:57)
[2021-01-18] MEDS: PARoxetine HCL 20 MG TABLET PO SCH (07:57)
[2021-01-18] MEDS: THIAMINE 100 MG TABLET PO SCH (07:57)
[2021-01-18] MEDS: FOLIC ACID 1 MG TABLET PO SCH (07:57)
[2021-01-18 08:12] VITALS: BP 141/83
[2021-01-18 16:07] VITALS: BP 130/73
[2021-01-18] MEDS: ZOLPIDEM TARTRATE 10 MG TABLET PO PRN (21:40)
[2021-01-18] MEDS: OLANZapine 10 MG TABLET PO SCH (21:40)
[2021-01-19 01:01] VITALS: BP 126/76
[2021-01-19] MEDS: FOLIC ACID 1 MG TABLET PO SCH (08:06)
[2021-01-19] MEDS: HydrOXYzine PAMOATE 50 MG CAPSULE PO PRN ×2 (08:06→14:29)
[2021-01-19] MEDS: PARoxetine HCL 20 MG TABLET PO SCH (08:06)
[2021-01-19] MEDS: THIAMINE 100 MG TABLET PO SCH (08:06)
[2021-01-19 08:18] VITALS: BP 118/74
[2021-01-19 16:16] VITALS: BP 125/77
[2021-01-19] MEDS: OLANZapine 10 MG TABLET PO SCH (20:21)
[2021-01-19] MEDS: ZOLPIDEM TARTRATE 10 MG TABLET PO PRN (21:45)
[2021-01-20 00:06] VITALS: BP 120/76
[2021-01-20 06:19] VITALS: BP 122/73
[2021-01-20] MEDS: HydrOXYzine PAMOATE 50 MG CAPSULE PO PRN ×2 (06:19→13:07)
[2021-01-20] MEDS: THIAMINE 100 MG TABLET PO SCH (08:05)
[2021-01-20] MEDS: FOLIC ACID 1 MG TABLET PO SCH (08:05)
[2021-01-20] MEDS: PARoxetine HCL 20 MG TABLET PO SCH (08:05)
[2021-01-20 08:21] VITALS: BP 133/76
[2021-01-20] MEDS: IBUPROFEN 400 MG TABLET PO PRN (10:37)
[2021-01-20 17:33] VITALS: BP 117/76
[2021-01-20] MEDS: OLANZapine 10 MG TABLET PO SCH (21:42)
[2021-01-20] MEDS: ZOLPIDEM TARTRATE 10 MG TABLET PO PRN (21:42)
[2021-01-21 00:51] VITALS: BP 114/79
[2021-01-21 08:20] VITALS: BP 114/79
[2021-01-21] MEDS: FOLIC ACID 1 MG TABLET PO SCH (08:31)
[2021-01-21] MEDS: THIAMINE 100 MG TABLET PO SCH (08:31)
[2021-01-21] MEDS: PARoxetine HCL 20 MG TABLET PO SCH (08:31)
[2021-01-21] MEDS: HydrOXYzine PAMOATE 50 MG CAPSULE PO PRN ×2 (12:25→18:31)
[2021-01-21 16:32] VITALS: BP 131/80
[2021-01-21] MEDS: HALOPERIDOL 5 MG TABLET PO PRN (20:25)
[2021-01-21] MEDS: OLANZapine 10 MG TABLET PO SCH (20:25)
[2021-01-21] MEDS: ZOLPIDEM TARTRATE 10 MG TABLET PO PRN (21:10)
[2021-01-22 01:03] VITALS: BP 124/83
[2021-01-22] MEDS: FOLIC ACID 1 MG TABLET PO SCH (08:03)
[2021-01-22] MEDS: THIAMINE 100 MG TABLET PO SCH (08:03)
[2021-01-22] MEDS: PARoxetine HCL 20 MG TABLET PO SCH (08:03)
[2021-01-22 08:13] VITALS: BP 120/63
[2021-01-22] MEDS: HydrOXYzine PAMOATE 50 MG CAPSULE PO PRN (08:17)
[2021-01-22] MEDS ORDERED: OLAN10TA3 PO (09:58)
[2021-01-22] MEDS ORDERED: OLANZapine 10 MG TABLET PO SCH (21:00)
== END 2021-01-22 11:57 | disposition home or self-care (01) | DRG 750 ==
LOC: EMS 18:32 → B3A 22:44
PROVIDERS: ADMIT Psychiatry & Neurology Psychiatry; ATTEND Psychiatry & Neurology Child & Adolescent Psychiatry
DX: F20.0 Paranoid schizophrenia (principal); E87.6 Hypokalemia; Z20.822 Contact with and (suspected) exposure to COVID-19; F41.9 Anxiety disorder, unspecified; R73.9 Hyperglycemia, unspecified; F12.90 Cannabis use, unspecified, uncomplicated; F32.9 Major depressive disorder, single episode, unspecified; F10.10 Alcohol abuse, uncomplicated; Y90.9 Presence of alcohol in blood, level not specified; F19.10 Other psychoactive substance abuse, uncomplicated
CPT/HCPCS: 83036; 84132; 87081; 87426; 99285; A9575; G0480; J1200; J1630; J2060

== ENCOUNTER 2021-02-18 08:30 | Emergency (ER) | payer MEDICAID, OTHER ==
[~2021-02-18] VITALS: Ht 167.6 cm; Wt 68.2 kg
[2021-02-18] MEDS ORDERED: ARIP2TAB27 PO (09:04)
[2021-02-18] MEDS ORDERED: LORazepam 1 MG TABLET PO ONE (10:45)
[2021-02-18 11:12] VITALS: BP 123/71
== END 2021-02-18 11:36 | disposition home or self-care (01) ==
LOC: EMS 08:34
DX: F41.9 Anxiety disorder, unspecified (principal); F25.9 Schizoaffective disorder, unspecified; F32.9 Major depressive disorder, single episode, unspecified; F12.90 Cannabis use, unspecified, uncomplicated; Z79.899 Other long term (current) drug therapy
CPT/HCPCS: 99283

== ENCOUNTER 2023-07-21 22:15 | Inpatient (IN) | payer MEDICARE, MEDICAID ==
[~2023-07-21] VITALS: Ht 162.6 cm; Wt 57.3 kg
[~2023-07-21 22:15] MED LIST changes: +ARIP2TAB27 PO; -OLAN10TA3 PO; -PARO-38 PO
[2023-07-21 23:01] LABS: GLUCOMETER DEV NAME(LOC) POC.BV; POC SARS-COV2 AG, FIA NEGATIVE (NEGATIVE)
[2023-07-21 23:30] VITALS: BP 138/89; PULSE 96; RESP 18; TEMP 97.7; O2SAT 99
[2023-07-22] MEDS: QUEtiapine FUMARATE 100 MG TABLET PO PRN ×2 (00:08→13:29)
[2023-07-22] MEDS: LORazepam 2 MG TABLET PO PRN ×2 (00:08→13:43)
[2023-07-22] MEDS: ZOLPIDEM TARTRATE 10 MG TABLET PO PRN (01:28)
[2023-07-22] MEDS ORDERED: INFLUENZA VIRUS VACCINE QVS 2023-24 (6MO+)/PF 60 MCG/0.5 ML SYRINGE IM. ONE (05:30)
[2023-07-22 08:18] LABS: BASOPHILS % (AUTO) 0.8 % (0.0-2.0); EOSINOPHILS % (AUTO) 2.6 % (1.0-6.0); HEMATOCRIT 39.7 % (36-46); HEMOGLOBIN 13.3 g/dL (12.0-16.0); LYMPHOCYTES # (AUTO) 2.8 K/uL (1.0-4.8); LYMPHOCYTES % (AUTO) 35.3 % (22.0-44.0); MEAN CORPUSCULAR HEMOGLOBIN 31.3 pg (26.0-34.0); MEAN CORPUSCULAR HGB CONC 33.6 G/dL (31.0-37.0); MEAN CORPUSCULAR VOLUME 93 fL (80-100); MONOCYTES # (AUTO) 0.7 K/uL (0.1-1.0); MONOCYTES % (AUTO) 8.4 % (2.0-9.0); NEUTROPHILS # (AUTO) 4.3 K/uL (1.8-7.7); NEUTROPHILS % (AUTO) 52.9 % (40.0-70.0); PLATELET COUNT (AUTO) 315 K/uL (150-450); RED BLOOD CELL COUNT(AUTO) 4.26 MIL/uL (4.00-5.20); RED CELL DISTRIBUTION WIDTH 13.7 % (11.5-14.5)
[2023-07-22 08:32] LABS: HEMOGLOBIN A1C 4.9 % (3.8-5.6)
[2023-07-22 08:35] LABS: ALANINE AMINOTRANSFERASE 18 U/L (12-78); ALBUMIN 3.5 g/dL (3.4-5.0); ALKALINE PHOSPHATASE 60 U/L (46-116); ANION GAP 7 mmol/L (8-16); ASPARTATE AMINOTRANSFERASE 12 U/L (15-37); BILIRUBIN,TOTAL 0.3 mg/dL (0.1-1.0); CALCIUM, TOTAL 8.5 mg/dL (8.8-10.5); CARBON DIOXIDE 28 mmol/L (22-29); CHLORIDE 103 mmol/L (98-107); CHOL/HDL RATIO 2.3 (3.9-5.7); CHOLESTEROL 108 mg/dL (131-200); CREATININE 0.69 mg/dL (0.60-1.30); GLOMERULAR FILTR. RATE CALC > 60 mL/min (>60); GLUCOSE,RANDOM 80 mg/dL (70-110); HDL CHOLESTEROL 46 mg/dL (40-60); LDL CHOL (CALC.) 50 mg/dL (0-130); POTASSIUM 3.6 mmol/L (3.5-5.1); SODIUM SERUM 138 mmol/L (136-145); TOTAL PROTEIN, SERUM 6.5 g/dL (6.4-8.2); TRIGLYCERIDES 59 mg/dL (15-150); UREA NITROGEN, BLOOD 11 mg/dL (7-18)
[2023-07-22 09:24] LABS: HCG,QUANTITATIVE < 1 mIU/mL (0-6); THYROID STIMULATING HORMONE 0.38 uIU/mL (0.36-3.74)
[2023-07-22 09:56] VITALS: BP 126/80; PULSE 99; RESP 16; TEMP 97.8; O2SAT 100
[2023-07-22] MEDS ORDERED: IBUPROFEN 400 MG TABLET PO PRN (13:45)
[2023-07-22] MEDS ORDERED: DOCUSATE SODIUM 100 MG CAPSULE PO PRN (14:45)
[2023-07-22] MEDS ORDERED: MAGNESIUM HYDROXIDE SUSPENSION 30 ML UDCUP PO PRN (14:45)
[2023-07-22] MEDS ORDERED: MAG HYDROX/ALUMINUM HYD/SIMETH ES 30 ML SUSPENSION UDCUP PO PRN (14:45)
[2023-07-22] MEDS ORDERED: IBUPROFEN 600 MG TABLET PO PRN (14:45)
[2023-07-22] MEDS ORDERED: ACETAMINOPHEN 325 MG TABLET PO PRN (14:45)
[2023-07-22] MEDS ORDERED: PETROLATUM,WHITE 28 GM JELLY TP PRN (14:45)
[2023-07-22] MEDS ORDERED: CloNIDine HCL 0.1 MG TABLET PO PRN (14:45)
[2023-07-22] MEDS ORDERED: BACITRACIN 28 GM OINTMENT TP PRN (14:45)
[2023-07-22] MEDS ORDERED: OMEPRAZOLE 20 MG CAPSULE PO PRN (14:45)
[2023-07-22] MEDS ORDERED: BENZOCAINE/MENTHOL LOZENGE PO PRN (14:45)
[2023-07-22] MEDS ORDERED: LOPERAMIDE HCL 2 MG CAPSULE PO PRN (14:45)
[2023-07-22] MEDS ORDERED: ALBUTEROL SULFATE HFA 90 MCG/PUFF 8 GM INHALER IH PRN (14:45)
[2023-07-22] MEDS: TraZODone HCL 50 MG TABLET PO SCH (20:08)
[2023-07-22] MEDS: QUEtiapine FUMARATE 300 MG ER TABLET PO SCH (20:08)
[2023-07-22] MEDS: PHENAZOPYRIDINE HCL 100 MG TABLET PO SCH (21:12)
[2023-07-22 21:18] VITALS: BP 104/63; PULSE 94; RESP 18; TEMP 97.8; O2SAT 98
[2023-07-23 08:04] VITALS: BP 136/74; PULSE 95; RESP 17; TEMP 97.8; O2SAT 98
[2023-07-23 08:04] LABS: BILIRUBIN,URINE NEGATIVE (NEGATIVE); COLOR,URINE LIGHT YELLOW (YELLOW); GLUCOSE, URINE (UA) NEGATIVE (NEGATIVE); KETONES,URINE NEGATIVE (NEGATIVE); LEUKOCYTE ESTERASE ,URINE LARGE (NEGATIVE); NITRATE,URINE POSITIVE (NEGATIVE); OCCULT BLOOD,URINE NEGATIVE (NEGATIVE); PH,URINE 6.5 (5.0-8.0); PH,URINE DRUG SCREEN 6.5 (5.0-8.0); PROTEIN,URINE NEGATIVE (NEGATIVE); SPECIFIC GRAVITIY, URINE 1.014 (1.003-1.030); UROBILINOGEN,URINE <=1.0 mg/dL (<=1.0)
[2023-07-23] MEDS: QUEtiapine FUMARATE 100 MG TABLET PO SCH ×3 (08:04→17:21)
[2023-07-23] MEDS: LORazepam 2 MG TABLET PO PRN ×2 (08:04→21:06)
[2023-07-23] MEDS: PHENAZOPYRIDINE HCL 100 MG TABLET PO SCH ×3 (08:04→17:21)
[2023-07-23 08:11] LABS: ALCOHOL, URINE DRUG SCREEN NEGATIVE (NEGATIVE); AMPHET/METH SCREEN,URINE NEGATIVE (NEGATIVE); APPEARANCE,URINE HAZY (CLEAR); BACTERIA,URINE Many /HPF (None Seen); BARBITURATE SCREEN, URINE NEGATIVE (NEGATIVE); BENZODIAZEPINES SCREEN,URINE NEGATIVE (NEGATIVE); CANNABINOID SCREEN,URINE POSITIVE (NEGATIVE); COCAINE SCREEN,URINE NEGATIVE (NEGATIVE); METHADONE SCREEN, URINE NEGATIVE (NEGATIVE); OPIATE SCREEN,URINE NEGATIVE (NEGATIVE); PHENCYCLIDINE SCREEN,URINE NEGATIVE (NEGATIVE); RBC,URINE 0-2 /HPF (0-2); SQUAMOUS EPITHELIAL CELL,UR Moderate /LPF (None Seen)
[2023-07-23] MEDS: NICOTINE 21 MG/24 HOUR PATCH TD PRN (11:27)
[2023-07-23] MEDS: CEPHALEXIN MONOHYDRATE 500 MG CAPSULE PO SCH (17:21)
[2023-07-23 20:10] VITALS: BP 127/75; PULSE 90; RESP 16; TEMP 97.8; O2SAT 97
[2023-07-23] MEDS: TraZODone HCL 50 MG TABLET PO SCH (20:14)
[2023-07-23] MEDS: QUEtiapine FUMARATE 300 MG ER TABLET PO SCH (20:14)
[2023-07-24] MEDS: ONDANSETRON HCL 4 MG TABLET PO PRN (03:38)
[2023-07-24] MEDS: CEPHALEXIN MONOHYDRATE 500 MG CAPSULE PO SCH ×3 (09:14→16:21)
[2023-07-24] MEDS: QUEtiapine FUMARATE 100 MG TABLET PO SCH ×3 (09:14→16:21)
[2023-07-24] MEDS: LORazepam 2 MG TABLET PO PRN ×2 (09:14→20:08)
[2023-07-24] MEDS: PHENAZOPYRIDINE HCL 100 MG TABLET PO SCH ×3 (09:14→16:21)
[2023-07-24 10:00] VITALS: BP 145/79; PULSE 137; RESP 18; TEMP 98.3; O2SAT 100
[2023-07-24 10:50] VITALS: PULSE 102
[2023-07-24] MEDS: NICOTINE 21 MG/24 HOUR PATCH TD PRN (16:55)
[2023-07-24 20:04] VITALS: BP 126/70; PULSE 98; RESP 16; TEMP 97.9; O2SAT 98
[2023-07-24] MEDS: TraZODone HCL 50 MG TABLET PO SCH (20:08)
[2023-07-24] MEDS: QUEtiapine FUMARATE 300 MG ER TABLET PO SCH (20:08)
[2023-07-24 22:07] VITALS: BP 127/75; PULSE 98; RESP 18; TEMP 97.5; O2SAT 98
[2023-07-25 08:05] VITALS: BP 122/70; PULSE 97; RESP 17; TEMP 97.7; O2SAT 96
[2023-07-25] MEDS: CEPHALEXIN MONOHYDRATE 500 MG CAPSULE PO SCH ×3 (08:10→16:18)
[2023-07-25] MEDS: PHENAZOPYRIDINE HCL 100 MG TABLET PO SCH ×3 (08:10→16:18)
[2023-07-25] MEDS: QUEtiapine FUMARATE 100 MG TABLET PO SCH ×3 (08:10→16:18)
[2023-07-25] MEDS: NICOTINE POLACRILEX 4 MG LOZENGE PO PRN ×2 (09:40→15:24)
[2023-07-25] MEDS: LORazepam 2 MG TABLET PO PRN (11:10)
[2023-07-25 20:05] VITALS: BP 127/74; PULSE 96; RESP 17; TEMP 97.9; O2SAT 98
[2023-07-25] MEDS: QUEtiapine FUMARATE 300 MG ER TABLET PO SCH (20:09)
[2023-07-25] MEDS: TraZODone HCL 50 MG TABLET PO SCH (20:09)
[2023-07-25] MEDS: ZOLPIDEM TARTRATE 10 MG TABLET PO PRN (21:29)
[2023-07-26 08:01] VITALS: BP 131/85; PULSE 101; RESP 17; TEMP 98.4; O2SAT 97
[2023-07-26] MEDS: QUEtiapine FUMARATE 100 MG TABLET PO SCH ×3 (09:30→16:46)
[2023-07-26] MEDS: NICOTINE POLACRILEX 4 MG LOZENGE PO PRN ×3 (09:30→19:00)
[2023-07-26] MEDS: CEPHALEXIN MONOHYDRATE 500 MG CAPSULE PO SCH ×3 (09:30→16:46)
[2023-07-26] MEDS: LORazepam 2 MG TABLET PO PRN (09:30)
[2023-07-26] MEDS: QUEtiapine FUMARATE 300 MG ER TABLET PO SCH (20:14)
[2023-07-26] MEDS: TraZODone HCL 50 MG TABLET PO SCH (20:14)
[2023-07-26 20:46] VITALS: BP 134/85; PULSE 100; RESP 17; TEMP 98; O2SAT 100
[2023-07-27] MEDS: ZOLPIDEM TARTRATE 10 MG TABLET PO PRN ×2 (01:57→22:16)
[2023-07-27 05:17] VITALS: BP 119/69; PULSE 106; RESP 17; TEMP 97.4; O2SAT 98
[2023-07-27] MEDS: NICOTINE POLACRILEX 4 MG LOZENGE PO PRN ×4 (05:17→22:29)
[2023-07-27 08:29] VITALS: BP 128/75; PULSE 102; RESP 17; TEMP 97; O2SAT 98
[2023-07-27] MEDS: LORazepam 2 MG TABLET PO PRN (08:47)
[2023-07-27] MEDS: QUEtiapine FUMARATE 100 MG TABLET PO SCH ×3 (08:47→16:02)
[2023-07-27] MEDS: CEPHALEXIN MONOHYDRATE 500 MG CAPSULE PO SCH ×3 (08:47→16:02)
[2023-07-27] MEDS: QUEtiapine FUMARATE 300 MG ER TABLET PO SCH (20:12)
[2023-07-27] MEDS: TraZODone HCL 50 MG TABLET PO SCH (20:12)
[2023-07-27 21:07] VITALS: BP 134/81; PULSE 81; RESP 18; TEMP 97.6; O2SAT 99
[2023-07-28] MEDS: NICOTINE POLACRILEX 4 MG LOZENGE PO PRN ×3 (05:29→19:06)
[2023-07-28] MEDS: QUEtiapine FUMARATE 100 MG TABLET PO SCH ×3 (08:05→16:30)
[2023-07-28] MEDS: CEPHALEXIN MONOHYDRATE 500 MG CAPSULE PO SCH ×3 (08:05→16:30)
[2023-07-28 08:07] VITALS: BP 120/69; PULSE 109; RESP 19; TEMP 97.9; O2SAT 98
[2023-07-28] MEDS: LORazepam 2 MG TABLET PO PRN (08:11)
[2023-07-28] MEDS: ZOLPIDEM TARTRATE 10 MG TABLET PO PRN (20:29)
[2023-07-28] MEDS: TraZODone HCL 50 MG TABLET PO SCH (20:29)
[2023-07-28] MEDS: QUEtiapine FUMARATE 300 MG ER TABLET PO SCH (20:29)
[2023-07-28 21:23] VITALS: BP 121/65; PULSE 99; RESP 18; TEMP 97.7; O2SAT 98
[2023-07-29] MEDS: NICOTINE POLACRILEX 4 MG LOZENGE PO PRN ×3 (05:35→19:13)
[2023-07-29 08:07] VITALS: BP 123/73; PULSE 95; RESP 17; TEMP 97.4; O2SAT 99
[2023-07-29] MEDS: QUEtiapine FUMARATE 100 MG TABLET PO SCH ×3 (08:16→17:06)
[2023-07-29] MEDS: CEPHALEXIN MONOHYDRATE 500 MG CAPSULE PO SCH ×3 (08:16→17:06)
[2023-07-29] MEDS: LORazepam 2 MG TABLET PO PRN (13:29)
[2023-07-29] MEDS: QUEtiapine FUMARATE 300 MG ER TABLET PO SCH (20:11)
[2023-07-29] MEDS: TraZODone HCL 50 MG TABLET PO SCH (20:11)
[2023-07-29 20:14] VITALS: BP 112/67; PULSE 110; RESP 20; TEMP 98; O2SAT 98
[2023-07-29] MEDS: ZOLPIDEM TARTRATE 10 MG TABLET PO PRN (22:02)
[2023-07-30] MEDS: NICOTINE POLACRILEX 4 MG LOZENGE PO PRN ×2 (08:04→18:02)
[2023-07-30] MEDS: QUEtiapine FUMARATE 100 MG TABLET PO SCH ×3 (08:04→16:35)
[2023-07-30] MEDS: CEPHALEXIN MONOHYDRATE 500 MG CAPSULE PO SCH ×2 (08:04→12:19)
[2023-07-30 08:23] VITALS: BP 126/67; PULSE 72; RESP 18; TEMP 97.8; O2SAT 97
[2023-07-30] MEDS: LORazepam 2 MG TABLET PO PRN (12:19)
[2023-07-30] MEDS: TraZODone HCL 50 MG TABLET PO SCH (20:03)
[2023-07-30] MEDS: QUEtiapine FUMARATE 300 MG ER TABLET PO SCH (20:03)
[2023-07-31] MEDS: QUEtiapine FUMARATE 100 MG TABLET PO SCH ×3 (08:38→16:02)
[2023-07-31] MEDS: NICOTINE POLACRILEX 4 MG LOZENGE PO PRN ×2 (08:57→13:16)
[2023-07-31 09:36] VITALS: BP 119/69; PULSE 101; RESP 16; TEMP 96; O2SAT 97
[2023-07-31] MEDS: LORazepam 2 MG TABLET PO PRN (09:49)
[2023-07-31] MEDS: ONDANSETRON HCL 4 MG TABLET PO PRN (11:18)
[2023-07-31] MEDS ORDERED: QUET300T2 PO (15:45)
[2023-07-31] MEDS ORDERED: QUET100T PO (15:46)
[2023-07-31] MEDS ORDERED: TRAZ-252 PO ×2 (15:47→19:25)
[2023-07-31] MEDS ORDERED: QUET100T34 PO (19:25)
[2023-07-31] MEDS ORDERED: QUET300T91 PO (19:25)
== END 2023-07-31 16:30 | disposition home or self-care (01) | DRG 885 ==
LOC: B2X 22:54
PROVIDERS: ADMIT Psychiatry & Neurology Psychiatry; ATTEND Psychiatry & Neurology Psychiatry
DX: F20.9 Schizophrenia, unspecified (principal); F41.9 Anxiety disorder, unspecified; G47.00 Insomnia, unspecified; F29 Unspecified psychosis not due to a substance or known physiological condition; Z20.822 Contact with and (suspected) exposure to COVID-19; F32.A Depression, unspecified; K59.00 Constipation, unspecified; Z72.0 Tobacco use; Z88.8 Allergy status to other drugs, medicaments and biological substances; Z79.899 Other long term (current) drug therapy
CPT/HCPCS: 80053; 80061; 80307; 81001; 83036; 84439; 84443; 84702; 85025; 87086; 87186; 90686; Q0162; Q9967